=== PATIENT | male | born 1940 | race African-American/Black ===

== ENCOUNTER → 2016-08-25 | Day surgery (SDC) | payer MEDICARE, MEDICAID ==
[~2016-08-25] MED LIST: LIDOCAINE HCL 1% 20ML VIAL (Pyxis) INJ ONE; SODIUM BICARBONATE 4% (2.4MEQ) 5ML VIAL IV ONE
== END | disposition home or self-care (01) ==
LOC: RADANGIO 08:02
PROVIDERS: ATTEND Urology
DX: N39.0 Urinary tract infection, site not specified (principal)
CPT/HCPCS: 36569; 76937; 77001; C1725; J3490; J7050

== ENCOUNTER 2017-08-11 05:55 | Emergency (ER) | payer MEDICARE, MEDICAID ==
[~2017-08-11] VITALS: Ht 182.9 cm; Wt 100.0 kg
[2017-08-11 07:46] LABS: CHLORIDE 95 mEq/L (98-107)
[2017-08-11 07:48] LABS: BASOPHILS % 0.2 % (0.0-2.0); EOSINOPHILS % 0.3 % (0.0-5.0); HEMATOCRIT. 41.2 % (42.0-52.0); HEMOGLOBIN. 13.9 g/dL (14.0-18.0); LYMPHOCYTES % 17.6 % (20.0-50.0); MEAN CORPUSCULAR HEMOGLOBIN 31.4 pg (28.0-32.0); MEAN CORPUSCULAR VOLUME 92.7 fL (80.0-94.0); MEAN PLATELET VOLUME 7.6 fl (7.4-10.4); MONOCYTES % 9.6 % (2.0-8.0); NEUTROPHILS % 72.3 % (40.0-76.0); PLATELET 239 x1000/uL (130-400); RED BLOOD CELL COUNT 4.44 mill/uL (4.7-6.1); RED CELL DISTRIBUTION WIDTH 13.5 % (11.6-14.6)
[2017-08-11] MEDS ORDERED: POTASSIUM CHLORIDE 20MEQ TABLET SR PO ONE (08:00)
[2017-08-11 09:00] LABS: CLARITY URINE CLEAR (CLEAR); COLOR URINE DARK YELLOW (YELLOW); KETONES URINE 1+ (NEGATIVE); LEUKOCYTE ESTERASE URINE TRACE (NEGATIVE); NITRITE URINE NEGATIVE (NEGATIVE); OCCULT BLOOD URINE NEGATIVE (NEGATIVE); PH URINE 8.5 (4.5-8.0); PROTEIN URINE TRACE (NEGATIVE); SPECIFIC GRAVITY URINE 1.029 (1.005-1.030); UROBILINOGEN URINE 0.2 E.U./dL (0.2-1.0)
[2017-08-11 10:50] VITALS: BP 121/64
== END 2017-08-11 11:26 | disposition home or self-care (01) ==
LOC: ER 05:55
DX: N39.0 Urinary tract infection, site not specified (principal); E87.6 Hypokalemia; J44.9 Chronic obstructive pulmonary disease, unspecified
CPT/HCPCS: 36415; 51702; 74176; 80053; 81003; 83690; 83735; 85025; 99285; A4315

== ENCOUNTER → 2018-01-11 | Outpatient (CLI) | payer MEDICARE, MEDICAID | END | disposition home or self-care (01) | LOC: NM 08:03 | PROVIDERS: ATTEND Urology | DX: C61 Malignant neoplasm of prostate (principal); M47.896 Other spondylosis, lumbar region | CPT/HCPCS: 78306; A9503 ==

== ENCOUNTER 2018-04-24 13:25 | Inpatient (IN) | payer MEDICARE, MEDICAID ==
[~2018-04-24] VITALS: Ht 182.9 cm; Wt 93.0 kg
[2018-04-24] MEDS ORDERED: SODIUM CHLORIDE 0.9% 1000ML BAG (SEPSIS BOLUS) IV ONE (14:45)
[2018-04-24 16:37] LABS: CHLORIDE 105 mEq/L (98-107)
[2018-04-24 16:39] LABS: BASOPHILS % 0.4 % (0.0-2.0); EOSINOPHILS % 1.4 % (0.0-5.0); HEMATOCRIT. 38.2 % (42.0-52.0); LYMPHOCYTES % 25.5 % (20.0-50.0); MEAN CORPUSCULAR VOLUME 96.7 fL (80.0-94.0); MEAN PLATELET VOLUME 7.6 fl (7.4-10.4); MONOCYTES % 9.4 % (2.0-8.0); NEUTROPHILS % 63.3 % (40.0-76.0); PLATELET 205 x1000/uL (130-400); RED BLOOD CELL COUNT 3.95 mill/uL (4.7-6.1); RED CELL DISTRIBUTION WIDTH 13.3 % (11.6-14.6)
[2018-04-24 16:43] LABS: INR 1.1; PROTHROMBIN TIME 11.5 sec (9.1-11.1)
[2018-04-24] MEDS ORDERED: PIPERACILLIN/TAZ 3.375G PREMIX 50 ML IV ONE (16:45)
[2018-04-24] MEDS ORDERED: HYDROCODONE/ACETAMINOPHEN 5/325MG TABLET PO ONE (17:00)
[2018-04-24 17:04] LABS: CLARITY URINE CLEAR (CLEAR); COLOR URINE YELLOW (YELLOW); KETONES URINE NEGATIVE (NEGATIVE); LEUKOCYTE ESTERASE URINE NEGATIVE (NEGATIVE); NITRITE URINE NEGATIVE (NEGATIVE); OCCULT BLOOD URINE TRACE (NEGATIVE); PH URINE 5.5 (4.5-8.0); PROTEIN URINE TRACE (NEGATIVE); SPECIFIC GRAVITY URINE 1.022 (1.005-1.030)
[2018-04-24] MEDS ORDERED: POTASSIUM CHLORIDE 20MEQ TABLET SR PO ONE (18:30)
[2018-04-24] MEDS ORDERED: ONDANSETRON HCL 4MG/2ML INJ IV PRN (19:15)
[2018-04-24] MEDS ORDERED: IPRATROPIUM/ALBUTEROL 0.5-3(2.5)MG/3ML NEB INH PRN (19:15)
[2018-04-24] MEDS ORDERED: GUAIFENESIN 200MG/10ML SUGAR FREE UDC PO PRN (19:15)
[2018-04-24] MEDS ORDERED: CLONIDINE 0.1MG TABLET PO PRN (19:15)
[2018-04-24] MEDS ORDERED: NA PHOS,M-B/NA PHOS,DI-BA ENEMA 118ML PR PRN (19:15)
[2018-04-24] MEDS ORDERED: MORPHINE SULFATE 4 MG/ML CPJ (NOT FOR IM USE) IV PRN (19:15)
[2018-04-24] MEDS ORDERED: ACETAMINOPHEN 325MG TABLET PO PRN (19:15)
[2018-04-24] MEDS ORDERED: DOCUSATE SODIUM 100MG CAPSULE PO PRN (19:15)
[2018-04-24] MEDS ORDERED: MAGNESIUM/ALUMINUM HYDROXIDE/SIMETHICONE 30ML UDC PO PRN (19:15)
[2018-04-24] MEDS ORDERED: TRAMADOL 50MG TABLET PO PRN (19:15)
[2018-04-24] MEDS ORDERED: DIPHENHYDRAMINE 50MG/ML VIAL IV PRN (19:15)
[2018-04-24 20:30] LABS: FOLIC ACID (FOLATE) SERUM >20 ng/mL ng/mL (>5.38)
[2018-04-24 20:42] LABS: VITAMIN B12 SERUM 1190 pg/mL (211-911)
[2018-04-24] MEDS ORDERED: DEXTROSE 50% WATER 50ML SYRINGE IV PRN (22:15)
[2018-04-24 22:45] VITALS: BP 104/60
[2018-04-25] VITALS (7 sets, daily range): BP systolic 90–118; BP diastolic 48–69
[2018-04-25] MEDS: ZOLPIDEM TARTRATE 5MG TABLET PO PRN (00:53)
[2018-04-25] MEDS ORDERED: KCL 20MEQ/100ML PREMIX 100 ML IV NR ×2 (02:00→04:00)
[2018-04-25] MEDS: SODIUM CHLORIDE 0.9% 1,000 ML IV SCH ×2 (02:08→14:50)
[2018-04-25] MEDS: CEFTRIAXONE 1 G PREMIX 50 ML IV SCH (06:06)
[2018-04-25] MEDS: INSULIN LISPRO 100 UNITS/ML SUBCUT SCH ×4 (06:11→20:47)
[2018-04-25] MEDS: BLOOD SUGAR DIAGNOSTIC STRIP TEST SCH ×4 (06:11→20:46)
[2018-04-25] MEDS: ENOXAPARIN 40MG/0.4ML SYR SUBCUT SCH (08:49)
[2018-04-25] MEDS ORDERED: CEFTRIAXONE 1 G PREMIX 50 ML IV SCH (09:00)
[2018-04-25 09:48] LABS: BASOPHILS % 0.4 % (0.0-2.0); EOSINOPHILS % 1.5 % (0.0-5.0); HEMATOCRIT. 34.9 % (42.0-52.0); HEMOGLOBIN. 11.8 g/dL (14.0-18.0); LYMPHOCYTES % 24.8 % (20.0-50.0); MEAN CORPUSCULAR VOLUME 97.2 fL (80.0-94.0); MEAN PLATELET VOLUME 7.5 fl (7.4-10.4); MONOCYTES % 8.2 % (2.0-8.0); NEUTROPHILS % 65.1 % (40.0-76.0); PLATELET 200 x1000/uL (130-400); RED BLOOD CELL COUNT 3.59 mill/uL (4.7-6.1); RED CELL DISTRIBUTION WIDTH 13.2 % (11.6-14.6)
[2018-04-25 09:59] LABS: CHLORIDE 110 mEq/L (98-107)
[2018-04-25] MEDS ORDERED: INFLUENZA VIRUS VACCINE(AFLURIA) 0.5ML SYR IM ONE (10:00)
[2018-04-25] MEDS: HYDROCODONE/ACETAMINOPHEN 10/325MG TABLET PO PRN ×2 (13:19→23:04)
[2018-04-25] MEDS ORDERED: POTASSIUM CHLORIDE 20MEQ/PACKET PO NR (17:00)
[2018-04-25] MEDS ORDERED: SILO8CAP2 MT (21:26)
[2018-04-25] MEDS ORDERED: IBUP-2030 MT (21:26)
[2018-04-25] MEDS ORDERED: MONT10TA21 MT (21:26)
[2018-04-25] MEDS ORDERED: HYDR-4009 MT (21:26)
[2018-04-25] MEDS ORDERED: FINA5TAB11 MT (21:26)
[2018-04-25] MEDS ORDERED: HYDR-2510 MT (21:26)
[2018-04-25] MEDS: IPRATROPIUM/ALBUTEROL 0.5-3(2.5)MG/3ML NEB HHN SCH (21:36)
[2018-04-26] VITALS: BP 112/67
[2018-04-26] MEDS: ZOLPIDEM TARTRATE 5MG TABLET PO PRN (00:10)
[2018-04-26] MEDS: SODIUM CHLORIDE 0.9% 1,000 ML IV SCH ×2 (00:40→17:30)
[2018-04-26] MEDS: IPRATROPIUM/ALBUTEROL 0.5-3(2.5)MG/3ML NEB HHN SCH ×5 (02:09→21:04)
[2018-04-26 04:00] VITALS: BP 118/66
[2018-04-26] MEDS: CEFTRIAXONE 1 G PREMIX 50 ML IV SCH (05:01)
[2018-04-26] MEDS: HYDROCODONE/ACETAMINOPHEN 10/325MG TABLET PO PRN ×3 (05:02→19:49)
[2018-04-26] MEDS: BLOOD SUGAR DIAGNOSTIC STRIP TEST SCH ×4 (06:11→21:40)
[2018-04-26] MEDS: INSULIN LISPRO 100 UNITS/ML SUBCUT SCH ×4 (06:12→18:57)
[2018-04-26 08:00] VITALS: BP 112/61
[2018-04-26 08:13] LABS: CHLORIDE 113 mEq/L (98-107)
[2018-04-26] MEDS: FAMOTIDINE 20MG TABLET PO SCH ×2 (10:01→21:39)
[2018-04-26] MEDS: ENOXAPARIN 40MG/0.4ML SYR SUBCUT SCH (10:02)
[2018-04-26] MEDS ORDERED: LACTULOSE 20G/30ML UDC PO SCH (10:15)
[2018-04-26 11:42] VITALS: BP 99/55
[2018-04-26 17:02] VITALS: BP 124/70
[2018-04-26 20:00] VITALS: BP 108/66
[2018-04-26] MEDS: ENOXAPARIN 100MG/ML SYR SUBCUT SCH (21:40)
[2018-04-27] VITALS: BP 110/68
[2018-04-27] MEDS: IPRATROPIUM/ALBUTEROL 0.5-3(2.5)MG/3ML NEB HHN SCH ×4 (01:37→20:48)
[2018-04-27 04:00] VITALS: BP 116/68
[2018-04-27] MEDS: HYDROCODONE/ACETAMINOPHEN 10/325MG TABLET PO PRN ×4 (04:19→18:10)
[2018-04-27] MEDS: CEFTRIAXONE 1 G PREMIX 50 ML IV SCH (06:07)
[2018-04-27] MEDS: SODIUM CHLORIDE 0.9% 1,000 ML IV SCH ×2 (06:08→13:24)
[2018-04-27] MEDS: BLOOD SUGAR DIAGNOSTIC STRIP TEST SCH ×4 (06:20→20:20)
[2018-04-27] MEDS: INSULIN LISPRO 100 UNITS/ML SUBCUT SCH ×4 (07:50→20:23)
[2018-04-27 08:00] VITALS: BP 110/65
[2018-04-27] MEDS ORDERED: PNEUMOCOCCAL 23-VAL P-SAC VAC 0.5 ML IM ONE (08:15)
[2018-04-27] MEDS ORDERED: INFLUENZA VIRUS VACCINE(AFLURIA) 0.5ML SYR IM ONE (08:15)
[2018-04-27] MEDS: FAMOTIDINE 20MG TABLET PO SCH ×2 (08:56→20:23)
[2018-04-27] MEDS: ENOXAPARIN 100MG/ML SYR SUBCUT SCH ×2 (08:58→20:23)
[2018-04-27 12:00] VITALS: BP 115/63
[2018-04-27 16:00] VITALS: BP 101/56
[2018-04-27 20:00] VITALS: BP 100/65
[2018-04-28] VITALS (7 sets, daily range): BP systolic 101–109; BP diastolic 55–67
[2018-04-28] MEDS: IPRATROPIUM/ALBUTEROL 0.5-3(2.5)MG/3ML NEB HHN SCH ×5 (03:50→21:31)
[2018-04-28] MEDS: CEFTRIAXONE 1 G PREMIX 50 ML IV SCH (05:38)
[2018-04-28] MEDS: BLOOD SUGAR DIAGNOSTIC STRIP TEST SCH ×4 (06:25→21:00)
[2018-04-28] MEDS: INSULIN LISPRO 100 UNITS/ML SUBCUT SCH ×4 (07:47→21:00)
[2018-04-28] MEDS: ENOXAPARIN 100MG/ML SYR SUBCUT SCH ×2 (08:31→21:49)
[2018-04-28] MEDS: HYDROCODONE/ACETAMINOPHEN 10/325MG TABLET PO PRN ×3 (08:31→22:03)
[2018-04-28] MEDS: FAMOTIDINE 20MG TABLET PO SCH ×2 (08:31→21:49)
[2018-04-28] MEDS: SODIUM CHLORIDE 0.9% 1,000 ML IV SCH ×2 (09:30→22:05)
[2018-04-28] MEDS: ZOLPIDEM TARTRATE 5MG TABLET PO PRN (21:49)
[2018-04-29] VITALS (7 sets, daily range): BP systolic 97–148; BP diastolic 51–75
[2018-04-29] MEDS: IPRATROPIUM/ALBUTEROL 0.5-3(2.5)MG/3ML NEB HHN SCH ×4 (01:06→20:17)
[2018-04-29] MEDS: CEFTRIAXONE 1 G PREMIX 50 ML IV SCH (06:46)
[2018-04-29] MEDS: BLOOD SUGAR DIAGNOSTIC STRIP TEST SCH ×4 (07:44→21:28)
[2018-04-29] MEDS: INSULIN LISPRO 100 UNITS/ML SUBCUT SCH ×4 (07:44→21:28)
[2018-04-29 07:49] LABS: HEMATOCRIT 32.2 % (42.0-52.0); HEMOGLOBIN 10.9 g/dL (14.0-18.0); MEAN CORPUSCULAR HEMOGLOBIN 33.4 pg (28.0-32.0); MEAN CORPUSCULAR VOLUME 98.4 fL (80.0-94.0); PLATELET 235 x1000/uL (130-400); RED BLOOD CELL COUNT 3.27 mill/uL (4.7-6.1); RED CELL DISTRIBUTION WIDTH 13.7 % (11.6-14.6)
[2018-04-29] MEDS: FAMOTIDINE 20MG TABLET PO SCH ×2 (09:06→21:27)
[2018-04-29] MEDS: ENOXAPARIN 100MG/ML SYR SUBCUT SCH ×2 (09:06→21:27)
[2018-04-29] MEDS: HYDROCODONE/ACETAMINOPHEN 10/325MG TABLET PO PRN ×3 (09:19→21:37)
[2018-04-30] VITALS: BP 102/58
[2018-04-30] MEDS: IPRATROPIUM/ALBUTEROL 0.5-3(2.5)MG/3ML NEB HHN SCH ×5 (00:43→20:47)
[2018-04-30] MEDS: SODIUM CHLORIDE 0.9% 1,000 ML IV SCH ×2 (00:58→14:50)
[2018-04-30] MEDS: HYDROCODONE/ACETAMINOPHEN 10/325MG TABLET PO PRN ×2 (02:10→06:29)
[2018-04-30 04:00] VITALS: BP 107/62
[2018-04-30] MEDS: BLOOD SUGAR DIAGNOSTIC STRIP TEST SCH ×4 (06:29→21:00)
[2018-04-30] MEDS: CEFTRIAXONE 1 G PREMIX 50 ML IV SCH (06:29)
[2018-04-30] MEDS: INSULIN LISPRO 100 UNITS/ML SUBCUT SCH ×4 (07:50→21:25)
[2018-04-30 08:00] VITALS: BP 101/60
[2018-04-30] MEDS: ENOXAPARIN 100MG/ML SYR SUBCUT SCH ×2 (09:07→21:20)
[2018-04-30] MEDS: FAMOTIDINE 20MG TABLET PO SCH ×2 (09:07→21:15)
[2018-04-30] MEDS ORDERED: HYDROCODONE/ACETAMINOPHEN 10/325MG TABLET PO PRN (10:45)
[2018-04-30 12:00] VITALS: BP 114/68
[2018-04-30 16:00] VITALS: BP 130/58
[2018-04-30 20:27] VITALS: BP 117/66
[2018-05-01] VITALS (7 sets, daily range): BP systolic 107–120; BP diastolic 56–72
[2018-05-01] MEDS: IPRATROPIUM/ALBUTEROL 0.5-3(2.5)MG/3ML NEB HHN SCH ×3 (03:19→13:05)
[2018-05-01] MEDS: CEFTRIAXONE 1 G PREMIX 50 ML IV SCH (06:05)
[2018-05-01] MEDS: SODIUM CHLORIDE 0.9% 1,000 ML IV SCH (07:07)
[2018-05-01] MEDS: BLOOD SUGAR DIAGNOSTIC STRIP TEST SCH ×2 (07:10→13:02)
[2018-05-01] MEDS: INSULIN LISPRO 100 UNITS/ML SUBCUT SCH ×2 (07:50→12:50)
[2018-05-01] MEDS ORDERED: HYDROXYZINE 10 MG TABLET PO PRN (10:45)
[2018-05-01] MEDS: TRAMADOL 50MG TABLET PO PRN ×2 (11:07→16:14)
[2018-05-01] MEDS: FAMOTIDINE 20MG TABLET PO SCH (11:07)
[2018-05-01] MEDS: ENOXAPARIN 100MG/ML SYR SUBCUT SCH (11:08)
[2018-05-01] MEDS ORDERED: ATORVASTATIN CALCIUM 10MG TABLET PO SCH (21:00)
== END 2018-05-01 16:20 | DRG 871 ==
LOC: ER 13:37 → ENRESERV 18:25 → 6WST 18:58 → 5EST 18:58 → UNDOADMIN 18:58 → SUPCPDRO 19:11 → EDBEDREQ 19:15 → EDBEDREQTM 19:15 → EDBEDREQSVC 19:15 → CANBEDREQ 21:18 → EDBEDREQ 22:28
PROVIDERS: ADMIT Internal Medicine; ATTEND Internal Medicine
DX: A41.9 Sepsis, unspecified organism (principal); L89.323 Pressure ulcer of left buttock, stage 3; J18.9 Pneumonia, unspecified organism; E44.0 Moderate protein-calorie malnutrition; N39.0 Urinary tract infection, site not specified; C79.51 Secondary malignant neoplasm of bone; M84.48XA Pathological fracture, other site, initial encounter for fracture; D68.59 Other primary thrombophilia; J44.1 Chronic obstructive pulmonary disease with (acute) exacerbation; I82.411 Acute embolism and thrombosis of right femoral vein; J44.0 Chronic obstructive pulmonary disease with (acute) lower respiratory infection; Z66 Do not resuscitate; M51.37 Other intervertebral disc degeneration, lumbosacral region; E87.6 Hypokalemia; D63.8 Anemia in other chronic diseases classified elsewhere; C61 Malignant neoplasm of prostate; M48.061 Spinal stenosis, lumbar region without neurogenic claudication; E11.65 Type 2 diabetes mellitus with hyperglycemia; K59.00 Constipation, unspecified; Z79.4 Long term (current) use of insulin; Z90.2 Acquired absence of lung [part of]; Z92.3 Personal history of irradiation; Z68.27 Body mass index [BMI] 27.0-27.9, adult
CPT/HCPCS: 36415; 71045; 72146; 72148; 80061; 82607; 82746; 82962; 83036; 83540; 83550; 83605; 83880; 84134; 84145; 84484; 85027; 90686; 90732; 93005; 93306; 93970; 94640; 96365; 96366; 97116; 97162; 97530; 97760; 99291; A6261; J0696; J1650; J1815; J2270; J2543; J3480; J7030; J7620